=== PATIENT | male | born 1995 | race African-American/Black ===

== ENCOUNTER 2016-09-15 02:55 | Emergency (ER) | payer OTHER ==
[2016-09-14 23:59] LABS: BASOPHIL% 0.6 % (0-2.5); EOSINOPHIL# 0.4 X10e3 (0-0.7); EOSINOPHIL% 7.7 % (0.0-7.0); HEMATOCRIT 43.4 % (38.0-50.0); LYMPHOCYTE# 2.1 X10e3 (1.0-3.5); LYMPHOCYTE% 37.6 % (17.0-45.0); MEAN CELL VOLUME 87.4 FL (83-96); MEAN CORPUSCULAR HEMOGLOBIN 30.1 PG (28-34); MEAN CORPUSCULAR HGB CONC 34.4 g/dL (30-36); MEAN PLATELET VOLUME 10.1 FL (6.5-11.5); MONOCYTE# 0.3 X10e3 (0-1.0); MONOCYTE% 4.6 % (3.0-12.0); NEUTROPHIL# 2.8 X10e3 (1.5-7.1); NEUTROPHIL% 49.5 % (40-75); PLATELET COUNT 160 X10e3 (140-420); RED BLOOD COUNT 4.97 X10e (3.90-5.60); RED CELL DISTRIBUTION WIDTH 13.5 % (11.0-15.5); WHITE BLOOD COUNT 5.7 X10e3 (4.0-10.5)
--- NOTE | ~2016-09-15 | CR72 ---
[facility] A Service of [facility] & [facility] / [facility] RADIOLOGY TEXT RESULTS PATIENT: HERNANDEZ HOLLAND LOCATION: [facility] : [birth year] UNIT #: [id number] AGE: [address]: David Jones MD SEX: M ORDER DR: [id number] [facility] [address] [place], [place] [address] [id number] E MR#: [id number] Acc #: [id number] NAME: HERNANDEZ HOLLAND : 1995 SEX: M STUDY DATE/TIME: 09/15/2016 03:31 UNIT: [facility] ROOM: STUDY DESCRIPTION: CR Chest Single View Portable Attending Physician: David Joens M.D. Ordering Physician: David Jones M.D. Primary Care Physician: Primary Care Physician No MEDICAL IMAGING REPORT This report is preliminary unless electronic signature is present EXAM Portable chest, 09/15 at 03:31 hours INDICATION Shortness of air and generalized body pain for 1 day. COMPARISON None. FINDINGS A single AP portable view of the chest shows both lungs to be clear. The heart is normal in size. The mediastinal contour is normal. No significant bone abnormalities are seen. IMPRESSION Normal portable chest. Dictated by... Lavell Vera Jr., M.D. THIS IS AN ELECTRONICALLY VERIFIED REPORT Lavell Vera Jr., M.D. at 09/15/2016 10:00 PM ALBERTA/guillermo TD: 09/15/2016 10:50 JOB #: [id number] MEDICAL IMAGING REPORT COPY
--- NOTE | ~2016-09-15 | EKG ---
PATIENT: HERNANDEZ HOLLAND UNIT #: [id number] Ventricular Rate: 44 BPM Atrial Rate: 44 BPM P-R Interval: 156 ms QRS Duration: 92 ms Q-T Interval: 410 ms QTC Calculation(Bezet): 350 ms P [place]: 49 degrees Calculated R [place]: 55 degrees Calculated T [place]: 57 degrees Diagnosis Line: Marked sinus bradycardia Diagnosis Line: Abnormal ECG Diagnosis Line: No previous ECGs available Diagnosis Line: Confirmed by ISIDRO GARCIA MD ([id number]) on Diagnosis Line: 09/15/2016 4:14:41 PM INTERPRETING MD: RADHA PECK
[2016-09-15 00:03] LABS: DIFF IND NO
[2016-09-15 00:33] LABS: ALBUMIN SERUM 4.3 g/dL (3.5-5.0); ALKALINE PHOSPHATASE 80 U/L (32-92); ALT (SGPT) 12 U/L (10-40); AST (SGOT) 17 U/L (10-42); BILIRUBIN, DIRECT 0.1 mg/dL (0.0-0.2); BILIRUBIN,INDIRECT 0.6 mg/dL (0.0-0.9); BILIRUBIN,TOTAL 0.7 mg/dL (0.2-2.0); BLOOD UREA NITROGEN 13 mg/dL (9-23); BUN/CREATININE RATIO 18.57; CALCIUM SERUM 9.4 mg/dL (8.4-10.2); CARBON DIOXIDE 26 mmol/L (22-31); CHLORIDE 104 mmol/L (100-111); CREATININE SERUM 0.7 mg/dL (0.6-1.4); GLOM FILT RATE Estimated ABOVE60 mL/min (>60); GLUCOSE FASTING 96 mg/dL (70-110); POTASSIUM 3.6 mmol/L (3.5-5.1); PROTEIN TOTAL SERUM 7.7 g/dL (6.0-8.3); SODIUM 138 mmol/L (135-145)
[2016-09-15 01:05] LABS: INFLUENZA A NEG (NEG); INFLUENZA B NEG (NEG)
== END 2016-09-15 04:45 | disposition home or self-care (01) ==
LOC: CED 02:55
PROVIDERS: Emergency Medicine
DX: I95.1 Orthostatic hypotension (principal); R00.1 Bradycardia, unspecified; R53.1 Weakness
CPT/HCPCS: 36415; 71010; 80048; 80076; 82947; 84443; 85025; 86308; 87804; 93005; 96360; 99284

== ENCOUNTER 2016-10-12 19:31 | Emergency (ER) | payer OTHER ==
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
== END 2016-10-12 20:51 | disposition home or self-care (01) ==
LOC: CFTX 19:31
DX: S63.601A Unspecified sprain of right thumb, initial encounter (principal); W23.0XXA Caught, crushed, jammed, or pinched between moving objects, initial encounter; Y93.67 Activity, basketball; Y92.410 Unspecified street and highway as the place of occurrence of the external cause
CPT/HCPCS: 29125; 73140; 99283

== ENCOUNTER 2016-10-27 09:58 | Emergency (ER) | payer OTHER | END 2016-10-27 10:00 | disposition home or self-care (01) | LOC: CFTX 09:58 | DX: L70.9 Acne, unspecified (principal) | CPT/HCPCS: 99282 ==